=== PATIENT | male | born 1980 | race Caucasian/White ===

== ENCOUNTER 2019-12-23 | Emergency (ER) | payer SELFPAY ==
--- OUTSIDE RECORDS SUMMARY | 2019-12-23 00:04 | XMS REPORT | Continuity of Care Document ---
:1980 Author Organization [facility] t Address [address] [place] [address] Care Team Providers Name Role Phone UNKNOWN Primary Care Physician Unavailable Problems This patient has no known problems. Allergies, Adverse Reactions, Alerts This patient has no known allergies or adverse reactions. Medications This patient has no known medications. Procedures This patient has no known procedures. Encounters Start End Encounter Admission Attending Care Care Encounter Source Date/Time Date/Time Type Type Clinicians Facility Department ID 2017-04-12 2017-04-12 Emergency E [facility] [id number] Medical 08:44:00 08:44:00 [facility] Results Test Description Test Time Test Comments Results Result [facility] e Comments SPINE LUMBAR SACR 2017-05-08 [facility] OF 09:31:[address] [id number] IMAGING REPORTPatient Name: Zehra KELLEY of Service: [id number]: 36 Sex: M Order #: [id number] [facility] 1980 [facility] Number: [id number] Record Number: [id number] Hospital Number: [id number] Physician: SULMA GRACEOrdering Physician: GEORGI SOLORZANO SPINE FIVE VIEWS:CLINICAL HISTORY: Back pain after liftingTECHNIQUE: AP, lateral, bilateral oblique and cone down lateral.FINDINGS: The lumbar vertebrae are normal in alignment with no suggestionof bone injury or subluxation seen at any level. The facet joints arenormal.IMPRESSIONN ormal lumbar spine.Electronically Signed By: Pankaj Phelps M.D., 05/08/2017 9:28 AMLegally authenticated by KADEN Miller 2017-05-08 09:28:38
[2019-12-23] MEDS ORDERED: TETANUS & DIPHTHERIA TOX,ADULT 0.5 ML VIAL ONE (00:36)
[2019-12-23] MEDS ORDERED: HYDROCODONE/APAP 7.5/325 MG TAB ONE (00:36)
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
[2019-12-23 01:42] VITALS: TEMP 98
[2019-12-23 01:43] VITALS: BP 110/74; O2SAT 97
--- NOTE | 2019-12-23 08:31 | RAD REPORT ---
EXAM DESCRIPTION: RAD - Foot Right 3 View - 12/23/2019 1:11 am CLINICAL HISTORY: PAIN Pain and swelling. COMPARISON: No comparisons FINDINGS: No fracture, dislocation or radiopaque foreign body seen. Hardware plate is present distal fibula.
--- NOTE | 2019-12-23 08:32 | RAD REPORT ---
EXAM DESCRIPTION: RAD - Tib Fib Right - 12/23/2019 1:10 am CLINICAL HISTORY: PAIN Pain and swelling COMPARISON: No comparisons FINDINGS: No fracture, dislocation or radiopaque foreign body. Small hardware plate is present dista l fibula.
== END 2019-12-23 01:30 | disposition home or self-care (01) ==
LOC: ER
DX: M79.661 Pain in right lower leg (principal); M25.571 Pain in right ankle and joints of right foot; X95.8XXA Assault by other firearm discharge, initial encounter; Y93.89 Activity, other specified; Y92.9 Unspecified place or not applicable; Z88.1 Allergy status to other antibiotic agents; Z91.040 Latex allergy status; F17.210 Nicotine dependence, cigarettes, uncomplicated
CPT/HCPCS: 90714; 99284

== ENCOUNTER 2020-10-30 18:50 | Emergency (ER) | payer SELFPAY ==
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
[2020-10-30] MEDS ORDERED: KETOROLAC 30 MG/ML INJ ONE (19:53)
[2020-10-30] MEDS ORDERED: LIDOCAINE 1% MPF 5 ML VIAL ONE (19:53)
--- NOTE | 2020-10-30 20:16 | EDPHYS ---
Physician Documentation [facility] Name: Eliot Lara Age: 40 yrs Sex: Male : 1980 Arrival Date: 10/30/2020 Time: 18:55 Bed 6 Private MD: ED Physician Jaylan Foster HPI: 10/30 19:31 This 40 yrs old Male presents to ER via Unassigned with complaints of Neck mh7 pain, shoulder pain. 20:03 The patient presents with an abscess of the right posterior lateral neck at hair line, mh7 the patient presents with a swollen area of the right posterior lateral neck at hairline. Description: erythematous, swollen, tense. Onset: The symptoms/episode began/occurred yesterday. Possible cause(s): unknown. Associated signs and symptoms: Pertinent positives: erythema, swelling, Pertinent negatives: discharge, drainage, foreign body sensation, fever, headache, nausea, shortness of breath, vomiting. Modifying factors: the symptoms are alleviated by nothing, the symptoms are aggravated by pressure, touching. Severity of symptoms: At their worst the symptoms were moderate, last night, in the emergency department the symptoms are unchanged. States that he cut his hair about a week ago then noticed bump yesterday which he has been touching. has noticed redness ,swelling, and pain that radiates to shoulder from the area.. Historical: - Allergies: 19:33 adhesive tape; lp1 19:33 Augmentin; lp1 19:33 Latex, Natural Rubber; lp1 19:33 Demerol; lp1 - Home Meds: 19:33 None [Active]; lp1 - PMHx: 19:33 ADD/ADHD; Bipolar disorder; epilepsy; neuropathy; lp1 - PSHx: 19:33 Ankle sx; lp1 - Immunization history:: Adult Immunizations up to date. - Social history:: Smoking status: Patient reports the use of cigarette tobacco products, smokes one pack cigarettes per day. ROS: 20:08 Constitutional: Negative for fever, chills, and weight loss, Eyes: Negative for injury, mh7 pain, redness, and discharge, ENT: Negative for injury, pain, and discharge, Cardiovascular: Negative for chest pain, palpitations, and edema, Respiratory: Negative for shortness of breath, cough, wheezing, and pleuritic chest pain, Abdomen/GI: Negative for abdominal pain, nausea, vomiting, diarrhea, and constipation, Back: Negative for injury and pain, : Negative for injury, bleeding, discharge, and swelling, MS/Extremity: Negative for injury and deformity, Neuro: Negative for headache, weakness, numbness, tingling, and seizure, Psych: Negative for depression, anxiety, suicide ideation, homicidal ideation, and hallucinations, Allergy/Immunology: Negative for hives, rash, and allergies, Endocrine: Negative for neck swelling, polydipsia, polyuria, polyphagia, and marked weight changes, Hematologic/Lymphatic: Negative for swollen nodes, abnormal bleeding, and unusual bruising. Exam: 20:08 Constitutional: This is a well developed, well nourished patient who is awake, alert, mh7 and in no acute distress. Head/Face: Normocephalic, atraumatic. Eyes: Pupils equal round and reactive to light, extra-ocular motions intact. Lids and lashes normal. Conjunctiva and sclera are non-icteric and not injected. Cornea within normal limits. Periorbital areas with no swelling, redness, or edema. 20:08 Chest/axilla: Normal chest wall appearance and motion. Nontender with no deformity. No lesions are appreciated. Cardiovascular: Regular rate and rhythm with a normal S1 and S2. No gallops, murmurs, or rubs. Normal PMI, no JVD. No pulse deficits. Respiratory: Lungs have equal breath sounds bilaterally, clear to auscultation and percussion. No rales, rhonchi or wheezes noted. No increased work of breathing, no retractions or nasal flaring. Abdomen/GI: Soft, non-tender, with normal bowel sounds. No distension or tympany. No guarding or rebound. No evidence of tenderness throughout. Back: No spinal tenderness. No costovertebral tenderness. Full range of motion. 20:08 MS/ Extremity: Pulses equal, no cyanosis. Neurovascular intact. Full, normal range of motion. Neuro: Awake and alert, GCS 15, oriented to person, place, time, and situation. Cranial nerves II-XII grossly intact. Motor strength 5/5 in all extremities. Sensory grossly intact. Cerebellar exam normal. Normal gait. Psych: Awake, alert, with orientation to person, place and time. Behavior, mood, and affect are within normal limits. 20:08 Neck: External neck: abscess, that is small, of the right posterior lateral neck at hairline, with surrounding cellulitis, erythema, that is mild, of the right posterior lateral neck at hairline, tenderness, that is mild, C-spine: appears grossly normal, Thyroid: appears normal, Trachea: is midline with no obvious abnormalities, ROM/movement: is normal, Lymph nodes: no appreciated lymphadenopathy. 20:08 Skin: abscess, that is small, approximately 2.5 cm(s), of the right posterior lateral neck at hairline, with induration, with surrounding cellulitis, that is mild. Vital Signs: 19:31 BP 150 / 107; Pulse 99; Resp 18; Temp 98.5(O); Pulse Ox 98% on R/A; Weight 81.65 kg lp1 (R); Height 5 ft. 8 in. (172.72 cm); Pain 8/10; 20:19 BP 127 / 90; lp1 19:31 Body Mass Index 27.37 (81.65 kg, 172.72 cm) lp1 Procedures: 20:08 I \T\ D: Incision and drainage was performed for an abscess of the right Prepped with [facility] Betadine, Anesthetized with 3 ml's 1% Lidocaine. Incised with #11 blade. Drained small amount purulent fluid. serosanguinous fluid. Loculations removed. Abscess cavity explored. Packed with iodoform gauze, Dressing: non-Adherent dressing, the patient tolerated the procedure well. MDM: 20:08 Differential diagnosis: abscess, allergic reaction, cellulitis, insect bite. Data [facility] reviewed: vital signs, nurses notes. Data interpreted: Pulse oximetry: on room air is 98 %. Interpretation: normal. Counseling: I had a detailed discussion with the patient and/or guardian regarding: the historical points, exam findings, and any diagnostic results supporting the discharge/admit diagnosis, the presence of at least one elevated blood pressure reading (>120/80) during this emergency department visit, the need for outpatient follow up, to return to the emergency department if symptoms worsen or persist or if there are any questions or concerns that arise at home. Response to treatment: the patient's symptoms have markedly improved after treatment. 20:15 Patient medically screened. [facility] Administered Medications: 19:38 Drug: TORadol 60 mg Route: IM; Site: right gluteus; 20:28 Follow up: Response: No adverse reaction lp1 19:38 Drug: Lidocaine (1 %) 10 ml {Note: Administered by Provider.} Volume: 5 ml; Route: wh Infiltration; 20:15 Drug: Clindamycin 600 mg Route: IM; Site: left gluteus; lp1 20:28 Follow up: Response: No adverse reaction; Medication administered at discharge. lp1 Disposition: 10/30/20 20:15 Discharged to Home. Impression: Skin Abscess, Right Neck. - Condition is Stable. - Discharge Instructions: Skin Abscess, [id number]. - Prescriptions for Clindamycin HCl 300 mg Oral Capsule - take 1 capsule by ORAL route every 6 hours for 10 days; 40 capsule. Ibuprofen 800 mg Oral Tablet - take 1 tablet by ORAL route every 8 hours As needed take with food; 15 tablet. - Medication Reconciliation Form, Thank You Letter, Antibiotic Education, Prescription Opioid Use form. - Follow up: Emergency Department; When: 48 Hours; Reason: Wound Recheck, Worsening of condition, Recheck today's complaints, Continuance of care, Re-evaluation by your physician. Follow up: Private Physician; When: 48 Hours; Reason: Wound Recheck, Worsening of condition, Recheck today's complaints. - Problem is new. - Symptoms have improved. Signatures: Monica Gil RN RN [facility] Miah Belle RN RN Jaylan Foster MD MD mh7 Corrections: (The following items were deleted from the chart) 20:29 20:15 10/30/2020 20:15 Discharged to Home. Impression: Skin Abscess, Right Neck. lp1 Condition is Stable. Forms are Medication Reconciliation Form, Thank You Letter, Antibiotic Education, Prescription Opioid Use. Follow up: Emergency Department; When: 48 Hours; Reason: Wound Recheck, Worsening of condition, Recheck today's complaints, Continuance of care, Re-evaluation by your physician. Follow up: Private Physician; When: 48 Hours; Reason: Wound Recheck, Worsening of condition, Recheck today's complaints. Problem is new. Symptoms have improved. mh7
--- NOTE | 2020-10-30 20:16 | ER ---
Nurse's Notes [facility] Name: Eliot Lara Age: 40 yrs Sex: Male : 1980 Arrival Date: 10/30/2020 Time: 18:55 Bed 6 Private MD: Diagnosis: Skin Abscess, Right Neck Presentation: 10/30 19:31 Chief complaint: Patient states: Pain to right side of neck radiating down right lp1 shoulder, reports popping pimple in that area about 1 month ago; States area is swollen, red, tender; denies fever. Coronavirus screen: Client denies travel out of the [place] in the last 14 days. At this time, the client does not indicate any symptoms associated with coronavirus-19. Ebola Screen: No symptoms or risks identified at this time. Initial Sepsis Screen: Does the patient meet any 2 criteria? No. Patient's initial sepsis screen is negative. Does the patient have a suspected source of infection? No. Patient's initial sepsis screen is negative. Risk Assessment: Do you want to hurt yourself or someone else? Patient reports no desire to harm self or others. Onset of symptoms was October 30, 2020. 19:31 Method Of Arrival: Ambulatory lp1 19:31 Acuity: OSWALDO 4 lp1 Historical: - Allergies: 19:33 adhesive tape; lp1 19:33 Augmentin; lp1 19:33 Latex, Natural Rubber; lp1 19:33 Demerol; lp1 - Home Meds: 19:33 None [Active]; lp1 - PMHx: 19:33 ADD/ADHD; Bipolar disorder; epilepsy; neuropathy; lp1 - PSHx: 19:33 Ankle sx; lp1 - Immunization history:: Adult Immunizations up to date. - Social history:: Smoking status: Patient reports the use of cigarette tobacco products, smokes one pack cigarettes per day. Screenin:33 Abuse screen: Denies threats or abuse. Denies injuries from another. Nutritional lp1 screening: No deficits noted. Tuberculosis screening: No symptoms or risk factors identified. Fall Risk None identified. Assessment: 19:37 General: Appears in no apparent distress. Behavior is calm, appropriate for age. Pain: lp1 Complains of pain in right mid cervical area and right trapezius Pain radiates to right shoulder Pain currently is 8 out of 10 on a pain scale. Neuro: No deficits noted. Cardiovascular: No deficits noted. Respiratory: No deficits noted. GI: No signs and/or symptoms were reported involving the gastrointestinal system. : No signs and/or symptoms were reported regarding the genitourinary system. EENT: No signs and/or symptoms were reported regarding the EENT system. Derm: Abscess located on right mid cervical area is quarter sized, is hot to touch, is red, is raised. Musculoskeletal: No deficits noted. 20:27 Reassessment: Patient demonstrates understanding of follow up and wound care at home. lp1 Vital Signs: 19:31 BP 150 / 107; Pulse 99; Resp 18; Temp 98.5(O); Pulse Ox 98% on R/A; Weight 81.65 kg lp1 (R); Height 5 ft. 8 in. (172.72 cm); Pain 8/10; 20:19 BP 127 / 90; lp1 19:31 Body Mass Index 27.37 (81.65 kg, 172.72 cm) lp1 ED Course: 18:55 Patient arrived in ED. mr 19:10 Jaylan Foster MD is Attending Physician. [facility] 19:12 Monica Gil, RN is Primary Nurse. lp1 19:32 Triage completed. lp1 19:32 Arm band placed on. lp1 19:33 Patient has correct armband on for positive identification. lp1 19:59 Assist provider with I \T\ D: of an abscess on right posterior neck Set up I\T\D tray. lp 1 Performed by Jaylan Foster MD Wound packed. iodoform gauze, Dressing with 4X4s, 4x4 and tegaderm applied. 20:08 Patient did not have IV access during this emergency room visit. lp1 Administered Medications: 19:38 Drug: TORadol 60 mg Route: IM; Site: right gluteus; 20:28 Follow up: Response: No adverse reaction lp1 19:38 Drug: Lidocaine (1 %) 10 ml {Note: Administered by Provider.} Volume: 5 ml; Route: wh Infiltration; 20:15 Drug: Clindamycin 600 mg Route: IM; Site: left gluteus; lp1 20:28 Follow up: Response: No adverse reaction; Medication administered at discharge. lp1 Outcome: 20:15 Discharge ordered by . [facility] 20:28 Discharged to home ambulatory. lp1 20:28 Condition: good 20:28 Discharge instructions given to patient, Instructed on discharge instructions, follow up and referral plans. medication usage, Demonstrated understanding of instructions, follow-up care, medications, wound care, Prescriptions given X 2. 20:29 Patient left the ED. lp1 Signatures: Pankaj Divina GilMonica RN RN 1 Miah Belle RN RN wh Holmes, Maurice, MD MD [facility] Corrections: (The following items were deleted from the chart) 20:08 19:59 Assist provider with I \T\ D: of an abscess on right posterior neck Set up I\T\D lp 1 tray. Performed by Jaylan Foster MD 1 20:27 19:59 Assist provider with I \T\ D: of an abscess on right posterior neck Set up I\T\D lp 1 tray. Performed by Jaylan Foster MD Dressing with 4X4s, 4x4 and tegaderm applied lp1
[2020-10-30] MEDS ORDERED: CLINDAMYCIN IV 150 MG/ML (4 mL) VIAL ONE (20:28)
== END 2020-10-30 20:29 | disposition home or self-care (01) ==
LOC: ER 18:50
PROC: 0H94XZZ Drainage of Neck Skin, External Approach (ICD-10-PCS; principal; 2020-10-30)
DX: L02.11 Cutaneous abscess of neck (principal); F17.210 Nicotine dependence, cigarettes, uncomplicated; F31.9 Bipolar disorder, unspecified; F90.9 Attention-deficit hyperactivity disorder, unspecified type; G40.909 Epilepsy, unspecified, not intractable, without status epilepticus; G62.9 Polyneuropathy, unspecified
CPT/HCPCS: 96372; 99283; S0077

== ENCOUNTER 2020-11-23 20:39 | Emergency (ER) | payer SELFPAY ==
--- OUTSIDE RECORDS SUMMARY | 2020-11-23 20:41 | XMS REPORT | Continuity of Care Document ---
:1980 Author Organization [facility] t Address [address] Bruce [address] [place] [id number] Care Team Providers Name Role Phone UNKNOWN [...] ID 2017-04-12 2017-04-12 Emergency E [facility] MED [id number] Medical 08:44:00 08:44:00 [facility] Results Test Description Test Time Test Comments Results Result Sour e Comments SPINE LUMBAR SACR 2017-05-08 [facility] OF 09:31:[address] [id number] IMAGING REPORTPatient Name: Zehra KELLEY of Service: [id number]: 36 Sex: M Order #: [id number] Room: ERSDOB: 1980 X-Ray Number: [id number] Record Number: [id number] Hospital Number: [id number] Physician: SULMA GRACEOrdering Physician: GEORGI SOLORZANO SPINE [...]
[2020-11-23] MEDS ORDERED: MIDAZOLAM HCL 2 MG/2 ML INJ ONE (21:14)
[2020-11-23 21:23] LABS: Absolute Lymphocytes (CBC) 4.2 K/uL (0.7-4.9); Basophils % 0.3 % (0-1.3); Hematocrit 43.9 % (39.6-49.0); Lymphocytes % 39.3 % (15.3-44.8); MPV 10.4 fL (7.6-11.3)
[2020-11-23 21:30] LABS: Protime INR 0.89
[2020-11-23] MEDS ORDERED: ONDANSETRON 4 MG/2 ML VIAL ONE (21:37)
[2020-11-23 21:43] LABS: BUN Blood Urea Nitrogen 11 mg/dL (7-18); Bicarbonate 23 mmol/L (21-32); Glucose Level 88 mg/dL (74-106); Potassium 3.6 mmol/L (3.5-5.1); Sodium Level 141 mmol/L (136-145)
[2020-11-23 22:00] LABS: Barbiturates NEGATIVE (NEGATIVE); Benzodiazepines NEGATIVE (NEGATIVE); Cocaine NEGATIVE (NEGATIVE); METHAMPHETAM NEGATIVE (NEGATIVE); Methadone NEGATIVE (NEGATIVE); Opiates NEGATIVE (NEGATIVE); Phencyclidine NEGATIVE (NEGATIVE); THC Cannibis NEGATIVE (NEGATIVE)
[2020-11-23] MEDS ORDERED: NA CHLORIDE 0.9% 1,000 ML ONE (22:08)
[2020-11-24] MEDS ORDERED: NA CHLORIDE 0.9% 1,000 ML ONE (04:48)
--- NOTE | 2020-11-24 06:07 | ER ---
Nurse's Notes [facility] Name: Eliot Lara Age: 40 yrs Sex: Male : 1980 Arrival Date: 11/23/2020 Time: 20:40 Bed 14 Private MD: Diagnosis: Alcohol abuse with intoxication;Pain in left lower leg Presentation: 11/23 20:47 Chief complaint: Patient states: pt assisted from vehicle by Nav GRIER who was told pt bb was [place] the beach drinking then started wrestling when they heard a snap and the pt passed out. The pt is c/o left hip pain 05/01. Coronavirus screen: At this time, the client does not indicate any symptoms associated with coronavirus-19. Ebola Screen: No symptoms or risks identified at this time. Initial Sepsis Screen: Does the patient meet any 2 criteria? No. Patient's initial sepsis screen is negative. Does the patient have a suspected source of infection? No. Patient's initial sepsis screen is negative. Risk Assessment: Do you want to hurt yourself or someone else? Patient reports no desire to harm self or others. Onset of symptoms was November 23, 2020. 20:47 Method Of Arrival: Wheelchair bb 20:47 Acuity: OSWALDO 3 bb 20:52 Care prior to arrival: None. Mechanism of Injury: "wrestling". Trauma event details: bb Injury occurred in the [facility], Injury occurred: in a recreational area. Triage Assessment: 22:04 General: Appears distressed, uncomfortable, Behavior is agitated, crying, restless. jm8 Pain: Complains of pain in left knee and left hip. EENT: No deficits noted. Neuro: Level of Consciousness is awake, confused, Oriented to person, place, Reaction to noxious stimuli is. Cardiovascular: No deficits noted. Respiratory: No deficits noted. GI: No deficits noted. : No deficits noted. Derm: No deficits noted. Musculoskeletal: Reports pain in left knee and left hip. Injury Description: Abrasion sustained to left knee. Trauma Activation: Alert Physician: ED Physician; Name: Dr Null; Notified At: 20:35; Arrived At: 20:35 Physician: General Surgeon; Name: ; Notified At: 20:35; Arrived At: Physician: Radiology; Name: ; Notified At: 20:35; Arrived At: Physician: Respiratory; Name: Fawad Jim; Notified At: 20:35; Arrived At: 20:37 Physician: Lab; Name: ; Notified At: 20:35; Arrived At: Historical: - Allergies: 20:51 adhesive tape; bb 20:51 Augmentin; bb 20:51 Demerol; bb 20:51 Latex, Natural Rubber; bb - Home Meds: 20:51 Zoloft Oral [Active]; bb - PMHx: 20:51 ADD/ADHD; Bipolar disorder; epilepsy; neuropathy; bb - PSHx: 20:51 Ankle sx; bb - Immunization history:: Adult Immunizations up to date. - Social history:: Smoking status: Patient reports the use of cigarette tobacco products, smokes two packs cigarettes per day. Patient uses alcohol, patient/guardian reports recent binge of alcohol consumption. street drugs, marijuana. - Immunization history: Last tetanus immunization: unknown. - Family history:: not pertinent. - Hospitalizations: : No recent hospitalization is reported. Screenin:00 Abuse screen: Denies threats or abuse. Denies injuries from another. Nutritional jm8 screening: No deficits noted. Tuberculosis screening: No symptoms or risk factors identified. Fall Risk Gait- Impaired (20 pts.). Mental Status-. Fall Risk. Primary Survey: 22:01 NO uncontrolled hemorrhage observed. A: The patient is alert. Airway: patent, No jm8 supplemental oxygen in use on arrival. Oral cavity: clear, Trachea midline. Breathing/Chest: Respiratory pattern: regular, Respiratory effort: spontaneous. Circulation: Skin color: pink, Skin temperature: warm. Disability Alert. Exposure/Environment: All clothing and personal items were removed. Forensic evidence collection is not deemed to be indicated at this time. Items placed in patient belonging bag. There is no evidence of uncontrolled external bleeding. No obvious injuries are noted at this time. A warming method has been applied: A warm blanket has been provided to the patient. Reassessment Airway Airway Patent Oxygen No O2 Breathing/Chest Circulation Color [place] Temperature Warm Disability Alert. Assessment: 20:56 Reassessment: Patient becomes physically aggressive with staff at this time. made tracey aware orders sedation for patient at this time. 21:41 Reassessment: Shellie- [phone]. [facility] 21:42 Reassessment: Patient family member Shellie states that patient drank a whole liter of jm8 vodka by himself. Family member states that patient did not do any other substances this evening. 23:56 Reassessment: Patient appears in no apparent distress at this time. Patient and/or 8 family updated on plan of care and expected duration. Pain level reassessed. 11/24 02:23 Reassessment: Patient appears in no apparent distress at this time. No changes from 8 previously documented assessment. Patient and/or family updated on plan of care and expected duration. Pain level reassessed. 04:37 Reassessment: Patient appears in no apparent distress at this time. No changes from 8 previously documented assessment. Patient and/or family updated on plan of care and expected duration. Pain level reassessed. Patient is alert, oriented x 3, equal unlabored respirations, skin warm/dry/pink. 04:37 Reassessment: Patient awake and talking at this time. [facility] Vital Signs: 11/23 20:47 BP 122 / 83; Pulse 93; Resp 20 S; Temp 97.8(O); Pulse Ox 99% on R/A; Weight 81.19 kg bb (R); Height 5 ft. 10 in. (177.80 cm) (R); Pain 10/10; 23:56 BP 116 / 92; Pulse 75; Resp 16; Pulse Ox 97% on R/A; jm8 11/24 02:25 BP 106 / 78; Pulse 65; Resp 16; Pulse Ox 97% on R/A; jm8 11/23 20:47 Body Mass Index 25.68 (81.19 kg, 177.80 cm) bb Frankie Coma Score: 11/23 22:03 Eye Response: spontaneous(4). Verbal Response: oriented(5). Motor Response: obeys jm8 commands(6). Total: 15. Trauma Score (Adult): 22:03 Eye Response: spontaneous(1); Verbal Response: oriented(1); Motor Response: obeys jm8 commands(2); Systolic BP: > 89 mm Hg(4); Respiratory Rate: 10 to 29 per min(4); Frankie Score: 15; Trauma Score: 12 ED Course: 20:40 Patient arrived in ED. es 20:44 Kade Null MD is Attending Physician. rn 20:50 Triage completed. bb 20:51 Arm band placed on Patient placed in an exam room, on a stretcher, on pulse oximetry. bb 20:52 Patient has correct armband on for positive identification. bb 20:52 Patient maintains SpO2 saturation greater than 95% on room air. bb 20:52 Inserted saline lock: 20 gauge in right forearm, using aseptic technique. jm8 21:01 Thermoregulation: warm blanket given to patient. bb 21:35 CT Traumagram (Head C Spine CAP W Con) In Process Unspecified. EDMS 21:41 XRAY Femur LEFT In Process Unspecified. EDMS 22:06 No provider procedures requiring assistance completed. tracey 11/24 05:13 ETOH Level: repeat at 0500 Sent. mary8 06:09 XRAY Tib Fib LEFT In Process Unspecified. EDMS 07:07 IV discontinued, intact, bleeding controlled, No redness/swelling at site. tracey Administered Medications: 11/23 20:54 CANCELLED (Duplicate Order): Dilaudid (HYDROmorphone) 1 mg IVP once; RASS on ADMIN: rn Combtv4, Very Agttd3, Agttd2, Rstlss1, AlertClm0, Drwsy-1, Lt Sdtn-2, Mod Sdtn-3, Dp Sdtn-4, UnArsble-5 21:00 Drug: Versed (midazolam) 3 mg Route: IVP; Site: right forearm; tracey 23:00 Follow up: Response: No adverse reaction; Patient is sedated jm8 21:52 Drug: NS 0.9% 1000 ml Route: IV; Rate: 1000 ml; Site: right forearm; tracey 21:53 Drug: Zofran (Ondansetron) 4 mg Route: IVP; Site: right forearm; tracey 23:00 Follow up: Response: No adverse reaction mary8 11/24 04:30 Drug: NS 0.9% 1000 ml Route: IV; Rate: 1 bolus; Site: right forearm; tracey Intake: 11/23 22:03 PO: 0ml; Total: 0ml. tracey Outcome: 11/24 06:06 Discharge ordered by . rn 07:01 Patient left the ED. jm8 07:[address] [facility] 07:07 Condition: good 07:07 Discharge instructions given to patient, Instructed on discharge instructions, follow up and referral plans. Demonstrated understanding of instructions, follow-up care, medications. 07:07 Patient's length of stay was not longer than 2 hours. Patient's length of stay in the [facility] Emergency Department was greater than 2 hours. intoxicatedPatient's length of stay extended due to Signatures: Dispatcher [employer] EDStephanie Carpenter Brenda, RN RN Kade Dean MD MD rn Malcaba, Joseph, RN RN [facility] Corrections: (The following items were deleted from the chart) 02:24 05/04 23:56 Reassessment: Patient appears in no apparent distress at this time. Patient jm8 and/or family updated on plan of care and expected duration. Pain level reassessed. Patient is alert, oriented x 3, equal unlabored respirations, skin warm/dry/pink. [facility]
--- NOTE | 2020-11-24 06:07 | EDPHYS ---
Physician Documentation [facility] Name: Eliot Lara Age: 40 yrs Sex: Male : 1980 Arrival Date: 11/23/2020 Time: 20:40 Bed 14 Private MD: ED Physician Kade Null HPI: 11/23 20:46 This 40 yrs old Male presents to ER via Unassigned with complaints of Leg rn Injury. 20:46 The patient presents with decreased range of motion, an injury, pain. The complaints rn affect the left quadriceps. Onset: The symptoms/episode began/occurred just prior to arrival. Modifying factors: The symptoms are alleviated by nothing. the symptoms are aggravated by movement. Associated signs and symptoms: Pertinent negatives fever, weakness. Severity of symptoms: At their worst the symptoms were severe, in the emergency department the symptoms are unchanged. The patient has not experienced similar symptoms in the past. Reports at beach, drinking, wrestling, heard a pop, + severe left upper leg pain, unable to ambulate, denies other injury.. Historical: - Allergies: 20:51 adhesive tape; bb 20:51 Augmentin; bb 20:51 Demerol; bb 20:51 Latex, Natural Rubber; bb - Home Meds: 20:51 Zoloft Oral [Active]; bb - PMHx: 20:51 ADD/ADHD; Bipolar disorder; epilepsy; neuropathy; bb - PSHx: 20:51 Ankle sx; bb - Immunization history:: Adult Immunizations up to date. - Social history:: Smoking status: Patient reports the use of cigarette tobacco products, smokes two packs cigarettes per day. Patient uses alcohol, patient/guardian reports recent binge of alcohol consumption. street drugs, marijuana. - Immunization history: Last tetanus immunization: unknown. - Family history:: not pertinent. - Hospitalizations: : No recent hospitalization is reported. ROS: 20:46 Constitutional: Negative for fever, chills, and weight loss, Neck: Negative for injury, rn pain, and swelling, Cardiovascular: Negative for chest pain, palpitations, and edema, Respiratory: Negative for shortness of breath, cough, wheezing, and pleuritic chest pain, Abdomen/GI: Negative for abdominal pain, nausea, vomiting, diarrhea, and constipation, Back: Negative for injury and pain, MS/Extremity: + left leg pain Skin: Negative for injury, rash, and discoloration, Neuro: Negative for headache, weakness, numbness, tingling, and seizure. Exam: 20:46 Constitutional: This is a well developed, well nourished patient who is awake, alert, rn crying, in pain Head/Face: Normocephalic, atraumatic. Eyes: Pupils equal round and reactive to light, extra-ocular motions intact. Lids and lashes normal. Conjunctiva and sclera are non-icteric and not injected. Cornea within normal limits. Periorbital areas with no swelling, redness, or edema. Neck: no midline tenderness Chest/axilla: Normal chest wall appearance and motion. Nontender with no deformity. No lesions are appreciated. Cardiovascular: Tachycardic, regular Respiratory: Hyperventilating, equal breath sounds bilaterally Abdomen/GI: soft, non-tender Skin: Warm, dry, no cyanosis MS/ Extremity: Pulses equal, no cyanosis. + tenderness mid-proximal left thigh, + refuses to move left upper leg, no focal tenderness at knee/tib/fib/ankle/foot. No open wounds. Neuro: Awake and alert, GCS 15, oriented to person, place, time, and situation. Vital Signs: 20:47 BP 122 / 83; Pulse 93; Resp 20 S; Temp 97.8(O); Pulse Ox 99% on R/A; Weight 81.19 kg bb (R); Height 5 ft. 10 in. (177.80 cm) (R); Pain 10/10; 23:56 BP 116 / 92; Pulse 75; Resp 16; Pulse Ox 97% on R/A; jm8 11/24 02:25 BP 106 / 78; Pulse 65; Resp 16; Pulse Ox 97% on R/A; jm8 11/23 20:47 Body Mass Index 25.68 (81.19 kg, 177.80 cm) bb Frankie Coma Score: 11/23 22:03 Eye Response: spontaneous(4). Verbal Response: oriented(5). Motor Response: obeys jm8 commands(6). Total: 15. Trauma Score (Adult): 22:03 Eye Response: spontaneous(1); Verbal Response: oriented(1); Motor Response: obeys jm8 commands(2); Systolic BP: > 89 mm Hg(4); Respiratory Rate: 10 to 29 per min(4); [place] Score: 15; Trauma Score: 12 MDM: 20:44 Patient medically screened. rn 20:58 ED course: Pt became acutely agitated, confused, no longer tender with ROM left leg, rn possibly either head injury vs intoxication with other substance, whoever dropped him off are no longer here for further information, patient began fighting 3 nurses, versed 3 mg IV ordered for sedation for safety of staff and to obtain stat head ct. . 22:16 ED course: Family called, state that he had a lot to drink today, said he was rn wrestling, but did not witness any obvious injury.. 11/24 05:48 ED course: Pt more sober now, states now that left lower leg hurts between knee and rn ankle. Xrays ordered given new finding on tertiary survey.. 06:05 Differential diagnosis: contusion. Data reviewed: vital signs, nurses notes, lab test rn result(s), radiologic studies, CT scan, plain films, and as a result, I will discharge patient. Counseling: I had a detailed discussion with the patient and/or guardian regarding: the historical points, exam findings, and any diagnostic results supporting the discharge/admit diagnosis, lab results, radiology results, the need for outpatient follow up, to return to the emergency department if symptoms worsen or persist or if there are any questions or concerns that arise at home. Response to treatment: the patient's symptoms have markedly improved after treatment, and as a result, I will discharge patient. ED course: No fracture/dislocation left femur/tibfib. More sober, Alcohol level 120s, will dc home in care of family. . 11/23 20:45 Order name: CBC with Diff rn 11/23 20:45 Order name: Basic Metabolic Panel rn 11/23 20:45 Order name: Protime (+inr) rn 11/23 20:45 Order name: Ptt, Activated; Complete Time: 21:36 rn 11/23 20:46 Order name: CBC with Automated Diff; Complete Time: 21:36 EDAK 11/23 20:46 Order name: Basic Metabolic Panel; Complete Time: 21:49 EDMS 11/23 20:45 Order name: XRAY Femur LEFT rn 11/23 20:46 Order name: Protime (+INR); Complete Time: 21:36 EDMS 11/23 20:55 Order name: Urine Drug Screen rn 11/23 20:55 Order name: ETOH Level; Complete Time: 22:16 rn 11/23 20:56 Order name: Urine Drug Screen; Complete Time: 22:16 EDAK 11/23 21:35 Order name: CREATININE WHOLE BLOOD; Complete Time: 21:36 EDAK 11/24 04:24 Order name: ETOH Level: repeat at 0500 bb 11/24 04:24 Order name: Alcohol Serum/Plasma; Complete Time: 05:44 EDAK 11/23 20:45 Order name: IV Start; Complete Time: 21:40 rn 11/23 20:55 Order name: CT Traumagram (Head C Spine CAP W Con) rn 11/24 05:47 Order name: XRAY Tib Fib LEFT rn Administered Medications: 11/23 20:54 CANCELLED (Duplicate Order): Dilaudid (HYDROmorphone) 1 mg IVP once; RASS on ADMIN: rn Combtv4, Very Agttd3, Agttd2, Rstlss1, AlertClm0, Drwsy-1, Lt Sdtn-2, Mod Sdtn-3, Dp Sdtn-4, UnArsble-5 21:00 Drug: Versed (midazolam) 3 mg Route: IVP; Site: right forearm; [facility] 23:00 Follow up: Response: No adverse reaction; Patient is sedated [facility] 21:52 Drug: NS 0.9% 1000 ml Route: IV; Rate: 1000 ml; Site: right forearm; [facility] 21:53 Drug: Zofran (Ondansetron) 4 mg Route: IVP; Site: right forearm; [facility] 23:00 Follow up: Response: No adverse reaction [facility] 11/24 04:30 Drug: NS 0.9% 1000 ml Route: IV; Rate: 1 bolus; Site: right forearm; [facility] Disposition: 11/24/20 06:06 Discharged to Home. Impression: Alcohol abuse with intoxication, Pain in left lower leg. - Condition is Stable. - Discharge Instructions: Alcohol Intoxication, Musculoskeletal Pain. - Medication Reconciliation Form, Thank You Letter, Antibiotic Education, Prescription Opioid Use form. - Follow up: Private Physician; When: As needed; Reason: Recheck today's complaints, Re-evaluation by your physician. - Problem is new. - Symptoms have improved. Signatures: Dispatcher [employer] Nazanin Benton RN RN Kade Dean MD MD rn Malcaba, Joseph, CHERRIE RN jm8 Corrections: (The following items were deleted from the chart) 11/23 20:54 20:45 Dilaudid (HYDROmorphone) 1 mg IVP once; RASS on ADMIN: Combtv4, Very Agttd3, rn Agttd2, Rstlss1, AlertClm0, Drwsy-1, Lt Sdtn-2, Mod Sdtn-3, Dp Sdtn-4, UnArsble-5 ordered. rn 11/24 07:01 06:06 11/24/2020 06:06 Discharged to Home. Impression: Alcohol abuse with intoxication; jm8 Pain in left lower leg. Condition is Stable. Discharge Instructions: Alcohol Intoxication, Musculoskeletal Pain. Forms are Medication Reconciliation Form, Thank You Letter, Antibiotic Education, Prescription Opioid Use. Follow up: Private Physician; When: As needed; Reason: Recheck today's complaints, Re-evaluation by your physician. Problem is new. Symptoms have improved. rn
[2020-11-24 07:07] VITALS: TEMP 97.8
[2020-11-24 07:08] VITALS: O2SAT 97
[2020-11-24 07:09] VITALS: BP 106/78
--- NOTE | 2020-11-24 07:30 | RAD REPORT ---
EXAM DESCRIPTION: RAD - Femur Left - 11/23/2020 9:41 pm CLINICAL HISTORY: Left leg pain. FINDINGS: No fracture is seen. Bony density adjacent to the lateral aspect of the acetabulum is air crew officer lisa.
--- NOTE | 2020-11-24 07:32 | RAD REPORT ---
EXAM DESCRIPTION: Tessa Reddy Left11/24/2020 6:10 am CLINICAL HISTORY: Left leg pain status post injury FINDINGS: No fracture is seen
--- NOTE | 2020-11-24 11:30 | RAD REPORT ---
EXAM DESCRIPTION: CT - Head C Spine Jorge Gaston - 11/24/2020 6:57 am CLINICAL HISTORY: AMS, alleged trauma. TECHNIQUE: Axial, coronal, and sagittal images through the brain were performed in the absence of in travenous contrast. CT of the cervical spine was performed without contrast. Axial, coronal, and sagittal reconstructions were created and sent to PACS. CT of the chest, abdomen, and pelvis was performed following intravenous administration of iodinated contrast. Oral contrast was not administered. Axial, coronal, and sagittal reconstructions were creat ed and sent to PACS. These exams were performed according to our departmental dose-optimization program which includes use of Automated Exposure Control, adjustment of the mA and/or kV according to patient size and/or use o f iterative reconstruction technique. COMPARISON: None. FINDINGS: CT Head: The brain parenchyma appears unremarkable. There is no intra-axial or extra-axial bleed seen. There i s no mass or mass effect. The ventricles are normal in size shape and configuration. The orbital cont ents appear unremarkable. The visualized paranasal sinuses and mastoid air cells are patent. No fracture is identified. 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 No acute osseous abnormality identified. Vertebral bod y height and alignment are maintained. No atlantodental interval widening. Atlantoaxial alignment is maintained. C2-C3: Small posterior disc osteophyte complex. No significant central canal or neuroforaminal narrow ing. C3-C4: Posterior disc osteophyte complex. Mild left-sided neuroforaminal narrowing due to uncinate an d facet hypertrophy. No significant central canal or right-sided neuroforaminal narrowing. C4-C5: Posterior disc osteophyte complex results in borderline narrowing of the central canal to 0.8 cm AP. No significant neuroforaminal narrowing. C5-C6: Posterior disc osteophyte complex results in mild narrowing of the central canal to 0.7 cm AP. Mild left-sided neuroforaminal stenosis due to uncinate hypertrophy. No significant right-sided neur oforaminal narrowing. C6-C7: Posterior disc osteophyte complex results in borderline central canal narrowing to 0.8 to 0.9 cm AP. Mild left-sided neuroforaminal stenosis due to uncinate hypertrophy. No significant right-side d neuroforaminal narrowing. Paraspinal soft tissues: Unremarkable. CT chest: Lungs and pleura: No pulmonary consolidation. No pleural effusion. No pneumothorax. Mediastinum and neck: No mediastinal lymphadenopathy identified by CT size criteria. Unremarkable adal earance of the thyroid gland. Cardiac: No cardiomegaly or pericardial effusion. No thoracic aortic aneurysm or dissection. CT abdomen/pelvis: Hepatobiliary: No concerning hepatic lesion identified. The hepatic and portal veins are patent. The gallbladder is unremarkable. No biliary ductal dilatation. Pancreas: Unremarkable. Spleen: Unremarkable. Gastrointestinal: Fluid in the proximal esophagus, suggestive of reflux. No evidence of bowel obstruc tion or perienteric inflammation. The appendix is normal. Moderate amount of fecal material in the si gmoid colon and rectum. Mild left colonic diverticulosis. No obvious bowel wall thickening or hematom a formation. Adrenals: No abnormality identified in either adrenal gland. Renal: No concerning parenchymal abnormality in either kidney. No hydronephrosis or urolithiasis. Bladder/Reproductive: Unremarkable appearance of the urinary bladder by CT technique. Mild prostatome andrew. Vascular/Lymphatics: No lymphadenopathy identified by CT size criteria. Abdominal aorta is normal in caliber. Mild calcific atherosclerosis. The major visceral vessels are patent. Musculoskeletal: No concerning osseous lesion identified. L5-S1 disc and endplate degenerative change s. No acute osseous abnormality identified. Fluid / peritoneum: No significant free fluid. No free intraperitoneal air identified. IMPRESSION 1. No acute intracranial abnormality identified. 2. No acute osseous abnormality identified in the cervical spine. 3. No acute traumatic abnormality identified in the chest, abdomen, or pelvis. Electronically signed by: Rose Mary Grubbs MD 11/23/2020 9:59 PM CDT Due to temporary technical issues with the PACS/Fluency reporting system, reports are being signed by the in house radiologist without review as a courtesy to ensure prompt reporting. The interpreting r adiologist is fully responsible for the content of the report.
== END 2020-11-24 07:01 | disposition home or self-care (01) ==
LOC: ER 20:39
DX: F10.129 Alcohol abuse with intoxication, unspecified (principal); F17.210 Nicotine dependence, cigarettes, uncomplicated; F31.9 Bipolar disorder, unspecified; Z88.1 Allergy status to other antibiotic agents; Z88.5 Allergy status to narcotic agent; Z91.040 Latex allergy status; Z91.048 Other nonmedicinal substance allergy status
CPT/HCPCS: 36415; 70450; 71260; 72125; 74177; 80048; 80307; 80320; 82565; 85025; 85610; 85730; 96374; 96375; 99284; G0390; J2250; J2405; J7030; Q9967

== ENCOUNTER 2020-11-27 16:28 | Emergency (ER) | payer SELFPAY ==
--- OUTSIDE RECORDS SUMMARY | 2020-11-27 16:31 | XMS REPORT | Continuity of Care Document ---
:1980 Author Organization [facility] t Address [address] Bruce [address] [place] [id number] Care Team Providers Name Role Phone UNKNOWN [...] ID 2017-04-12 2017-04-12 Emergency E [facility]CS[facility]X MED [id number] Medical 08:44:00 08:44:00 [facility] Results Test Description Test Time Test Comments Results Result Sour e Comments SPINE LUMBAR SACR 2017-05-08 [facility] OF 09:31:[address] [id number] IMAGING REPORTPatient Name: Zehra KELLEY of Service: [id number]: 37 Sex: M Order #: [id number] Room: ERSDOB: 1980 X-Ray Number: [id number] Record Number: [id number] Hospital Number: [id number] Physician: SULMA GRACEOrdering Physician: GEORGI SOLORZANO SPINE [...]
[2020-11-27] MEDS ORDERED: NA CHLORIDE 0.9% 1,000 ML ONE (17:07)
[2020-11-27 17:25] LABS: Absolute Lymphocytes (CBC) 1.6 K/uL (0.7-4.9); Basophils % 0.3 % (0-1.3); Hematocrit 42.5 % (39.6-49.0); Lymphocytes % 25.2 % (15.3-44.8); MPV 10.6 fL (7.6-11.3); RBC Red Blood Cell Count 4.66 M/uL (4.33-5.43)
[2020-11-27 17:33] LABS: Protime INR 0.96
[2020-11-27 17:47] LABS: ALT/SGPT 19 U/L (12-78); AST/SGOT 14 U/L (15-37); Albumin 4.1 g/dL (3.4-5.0); Alkaline Phosphatase 74 U/L (45-117); BUN Blood Urea Nitrogen 8 mg/dL (7-18); Bicarbonate 27 mmol/L (21-32); Bilirubin Direct 0.2 mg/dL (0-0.2); Bilirubin Total 1.1 mg/dL (0.2-1.0); Glucose Level 91 mg/dL (74-106); Potassium 3.8 mmol/L (3.5-5.1); Protein, Total 7.7 g/dL (6.4-8.2); Sodium Level 140 mmol/L (136-145)
--- NOTE | 2020-11-27 18:23 | EDPHYS ---
Physician Documentation [facility] Name: Eliot Lara Age: 40 yrs Sex: Male : 1980 Arrival Date: 11/27/2020 Time: 16:29 Bed 5 Private MD: ED Physician Lg Bishop HPI: 11/27 16:46 This 40 yrs old Male presents to ER via EMS with complaints of meth use. lawrence 16:46 used meth , hallucinations. Onset: The symptoms/episode began/occurred this morning. lawrence Severity of symptoms: At their worst the symptoms were mild in the emergency department the symptoms are unchanged. The patient has not experienced similar symptoms in the past. Historical: - Allergies: 16:33 adhesive tape; em 16:33 Augmentin; em 16:33 Demerol; em 16:33 Latex, Natural Rubber; em - PMHx: 16:33 ADD/ADHD; Bipolar disorder; epilepsy; neuropathy; em - PSHx: 16:33 Ankle sx; Hernia repair; em - Immunization history:: Adult Immunizations up to date. - Social history:: Smoking status: Patient reports the use of cigarette tobacco products, smokes one pack cigarettes per day. ROS: 16:47 Constitutional: Negative for fever, chills, and weight loss, Eyes: Negative for injury, lawrence pain, redness, and discharge, ENT: Negative for injury, pain, and discharge, Neck: Negative for injury, pain, and swelling, Respiratory: Negative for shortness of breath, cough, wheezing, and pleuritic chest pain, Abdomen/GI: Negative for abdominal pain, nausea, vomiting, diarrhea, and constipation, Back: Negative for injury and pain, : Negative for injury, bleeding, discharge, and swelling, MS/Extremity: Negative for injury and deformity, Skin: Negative for injury, rash, and discoloration, Psych: Negative for depression, anxiety, suicide ideation, homicidal ideation, and hallucinations, Allergy/Immunology: Negative for hives, rash, and allergies, Endocrine: Negative for neck swelling, polydipsia, polyuria, polyphagia, and marked weight changes, Hematologic/Lymphatic: Negative for swollen nodes, abnormal bleeding, and unusual bruising. 16:47 Cardiovascular: Positive for palpitations. 16:47 Neuro: Positive for altered mental status. Exam: 16:47 Constitutional: This is a well developed, well nourished patient who is awake, alert, lawrence and in no acute distress. Head/Face: Normocephalic, atraumatic. Eyes: Pupils equal round and reactive to light, extra-ocular motions intact. Lids and lashes normal. Conjunctiva and sclera are non-icteric and not injected. Cornea within normal limits. Periorbital areas with no swelling, redness, or edema. ENT: Nares patent. No nasal discharge, no septal abnormalities noted. Tympanic membranes are normal and external auditory canals are clear. Oropharynx with no redness, swelling, or masses, exudates, or evidence of obstruction, uvula midline. Mucous membranes moist. Neck: Trachea midline, no thyromegaly or masses palpated, and no cervical lymphadenopathy. Supple, full range of motion without nuchal rigidity, or vertebral point tenderness. No Meningismus. Chest/axilla: Normal chest wall appearance and motion. Nontender with no deformity. No lesions are appreciated. Respiratory: Lungs have equal breath sounds bilaterally, clear to auscultation and percussion. No rales, rhonchi or wheezes noted. No increased work of breathing, no retractions or nasal flaring. Abdomen/GI: Soft, non-tender, with normal bowel sounds. No distension or tympany. No guarding or rebound. No evidence of tenderness throughout. Back: No spinal tenderness. No costovertebral tenderness. Full range of motion. Male : Normal genitalia with no discharge or lesions. Skin: Warm, dry with normal turgor. Normal color with no rashes, no lesions, and no evidence of cellulitis. MS/ Extremity: Pulses equal, no cyanosis. Neurovascular intact. Full, normal range of motion. Neuro: Awake and alert, GCS 15, oriented to person, place, time, and situation. Cranial nerves II-XII grossly intact. Motor strength 5/5 in all extremities. Sensory grossly intact. Cerebellar exam normal. Normal gait. Psych: Awake, alert, with orientation to person, place and time. Behavior, mood, and affect are within normal limits. 16:47 Cardiovascular: Rate: tachycardic, Rhythm: regular, Pulses: Pulses are 4+ in bilateral radial, brachial, femoral, popliteal, posterior tibial and and dorsalis pedis arteries.. Heart sounds: normal, Edema: is not appreciated, JVD: is not appreciated. 16:47 Musculoskeletal/extremity: DVT Exam: No signs of deep vein thrombosis. no pain, no swelling, no tenderness, negative Homans' sign noted on exam, no appreciated bluish discoloration, no erythema, no increased warmth. 16:49 ECG was reviewed by the Attending Physician. lawrence 18:22 Respiratory: the patient does not display signs of respiratory distress, Respirations: lawrence normal, Breath sounds: are clear throughout, no bronchial sounds, no decreased breath sounds, no rales, rhonchi, no stridor, no wheezing, Respiratory rate: 16 Vital Signs: 16:30 BP 144 / 94; Pulse 117; Resp 18; Pulse Ox 97% on R/A; Weight 75.75 kg; Height 5 ft. 8 em in. (172.72 cm); Pain 8/10; 17:00 Temp 98.2; em 17:15 BP 133 / 85; Pulse 106; Resp 18; Pulse Ox 99% ; sv 18:18 BP 117 / 87; Pulse 102; Resp 16; Pulse Ox 100% ; sv 16:30 Body Mass Index 25.39 (75.75 kg, 172.72 cm) em MDM: 16:39 Patient medically screened. lawrence 17:44 Differential diagnosis: Ingestion/exposure to methamphetamines over medication. lawrence Differential Diagnosis altered mental status. Data reviewed: vital signs, nurses notes, lab test result(s), EKG. Data interpreted: secured entrance monitor: rate is 106 beats/min, rhythm is regular. Test interpretation: by ED physician or midlevel provider: ECG. Counseling: I had a detailed discussion with the patient and/or guardian regarding: the historical points, exam findings, and any diagnostic results supporting the discharge/admit diagnosis, lab results, radiology results, the need for outpatient follow up, for definitive care, a family practitioner, a psychiatrist. 11/27 16:39 Order name: Acetaminophen [facility] 11/27 16:39 Order name: Basic Metabolic Panel [facility] 11/27 16:39 Order name: CBC with Diff lawrence 11/27 16:39 Order name: ETOH Level; Complete Time: 18:22 [facility] 11/27 16:39 Order name: Hepatic Function; Complete Time: 18:22 [facility] 11/27 16:39 Order name: PT-INR; Complete Time: 18:22 [facility] 11/27 16:39 Order name: Ptt, Activated; Complete Time: 18:22 [facility] 11/27 16:39 Order name: Salicylate; Complete Time: 18:22 [facility] 11/27 16:39 Order name: EKG; Complete Time: 16:40 [facility] 11/27 16:39 Order name: Acetaminophen Level; Complete Time: 18:22 [facility] 11/27 16:39 Order name: Basic Metabolic Panel; Complete Time: 18:22 [facility] 11/27 16:39 Order name: CBC with Automated Diff; Complete Time: 17:35 [facility] 11/27 16:39 Order name: EKG - Nurse/Tech; Complete Time: 16:45 [facility] 11/27 16:39 Order name: IV Saline Lock; Complete Time: 16:45 [facility] 11/27 16:39 Order name: Labs collected and sent; Complete Time: 16:45 [facility] EC:49 Rate is 116 beats/min. Rhythm is regular. QRS Carmine is Normal. WA interval is normal. [facility] QRS interval is normal. QT interval is normal. No Q waves. T waves are Normal. No ST changes noted. Clinical impression: NSR w/ Non-specific ST/T Changes, Sinus tachycardia, and No evidence of ischemia. Interpreted by me. Reviewed by me. Administered Medications: 17:02 Drug: NS 0.9% 1000 ml Route: IV; Rate: 1 bolus; Site: right forearm; em 18:30 Follow up: IV Status: Completed infusion; IV Intake: 1000ml em Disposition: 11/27/20 18:23 Discharged to Home. Impression: Bipolar disorder, Adverse effect of amphetamines, Abuse of non-psychoactive substances. - Condition is Stable. - Discharge Instructions: Stimulant Use Disorder-Amphetamines, Bipolar Disorder, Substance Use Disorder, Stimulant Use Disorder-Methamphetamines. - Medication Reconciliation Form, Thank You Letter, Antibiotic Education, Prescription Opioid Use form. - Follow up: Private Physician; When: 2 - 3 days; Reason: Recheck today's complaints, Re-evaluation by your physician. Follow up: Kenrick Loomis; When: 2 - 3 days; Reason: Recheck today's complaints, Re-evaluation by your physician. - Problem is new. - Symptoms have improved. Signatures: Dispatcher [employer] Lg Roach MD MD cha Munoz, Edgar, RN RN em Corrections: (The following items were deleted from the chart) 16:46 16:39 Suicide Screening ([place]) ordered. lawrence em 18:46 18:23 11/27/2020 18:23 Discharged to Home. Impression: Bipolar disorder; Adverse effect em of amphetamines; Abuse of non-psychoactive substances. Condition is Stable. Discharge Instructions: Bipolar Disorder, Substance Use Disorder, Stimulant Use Disorder-Amphetamines, Stimulant Use Disorder-Methamphetamines. Forms are Medication Reconciliation Form, Thank You Letter, Antibiotic Education, Prescription Opioid Use. Follow up: Private Physician; When: 2 - 3 days; Reason: Recheck today's complaints, Re-evaluation by your physician. Follow up: Kenrick Loomis; When: 2 - 3 days; Reason: Recheck today's complaints, Re-evaluation by your physician. Problem is new. Symptoms have improved. lawrence
--- NOTE | 2020-11-27 18:23 | ER ---
Nurse's Notes [facility] Name: Eliot Lara Age: 40 yrs Sex: Male : 1980 Arrival Date: 11/27/2020 Time: 16:29 Bed 5 Private MD: Diagnosis: Bipolar disorder;Adverse effect of amphetamines;Abuse of non-psychoactive substances Presentation: 11/27 16:30 Chief complaint: EMS states: called out for visual and auditory hallucinations after em using meth., pt was clean for 15 months and used 1/2 gram at 0400 , ever since has been having the symptoms. Coronavirus screen: Client denies travel out of the [place] in the last 14 days. Ebola Screen: Patient negative for fever greater than or equal to 101.5 degrees Fahrenheit, and additional compatible Ebola Virus Disease symptoms Patient denies exposure to infectious person. Patient denies travel to an Ebola-affected area in the 21 days before illness onset. No symptoms or risks identified at this time. Initial Sepsis Screen: Does the patient meet any 2 criteria? HR > 90 bpm. No. Patient's initial sepsis screen is negative. Does the patient have a suspected source of infection? No. Patient's initial sepsis screen is negative. Risk Assessment: Do you want to hurt yourself or someone else? Patient reports no desire to harm self or others. Onset of symptoms was November 27, 2020. 16:30 Method Of Arrival: EMS: [facility] em 16:30 Acuity: OSWALDO 2 em Historical: - Allergies: 16:33 adhesive tape; em 16:33 Augmentin; em 16:33 Demerol; em 16:33 Latex, Natural Rubber; em - PMHx: 16:33 ADD/ADHD; Bipolar disorder; epilepsy; neuropathy; em - PSHx: 16:33 Ankle sx; Hernia repair; em - Immunization history:: Adult Immunizations up to date. - Social history:: Smoking status: Patient reports the use of cigarette tobacco products, smokes one pack cigarettes per day. Screenin:33 Abuse screen: Denies threats or abuse. Nutritional screening: No deficits noted. em Tuberculosis screening: No symptoms or risk factors identified. Fall Risk None identified. Assessment: 16:33 General: Appears in no apparent distress. comfortable, Behavior is calm, cooperative, em appropriate for age, Reports shaking, auditory and visual hallucinations, denies chest pain. Pain: Complains of pain in neck Pain currently is 8 out of 10 on a pain scale. Neuro: Level of Consciousness is awake, alert, obeys commands, Oriented to person, place, time, situation. Cardiovascular: Capillary refill < 3 seconds Patient's skin is warm and dry. Respiratory: Airway is patent Respiratory effort is even, unlabored, Respiratory pattern is regular, symmetrical. GI: Patient currently denies nausea, vomiting. Derm: Skin is intact, is healthy with good turgor, Skin is pink, warm \T\ dry. Musculoskeletal: Capillary refill < 3 seconds, Range of motion: intact in all extremities. 17:15 Reassessment: Patient appears in no apparent distress at this time. Patient and/or em family updated on plan of care and expected duration. Pain level reassessed. 18:42 Reassessment: Patient appears in no apparent distress at this time. Patient and/or em family updated on plan of care and expected duration. Pain level reassessed. Patient is alert, oriented x 3, equal unlabored respirations, skin warm/dry/pink. Vital Signs: 16:30 BP 144 / 94; Pulse 117; Resp 18; Pulse Ox 97% on R/A; Weight 75.75 kg; Height 5 ft. 8 em in. (172.72 cm); Pain 8/10; 17:00 Temp 98.2; em 17:15 BP 133 / 85; Pulse 106; Resp 18; Pulse Ox 99% ; sv 18:18 BP 117 / 87; Pulse 102; Resp 16; Pulse Ox 100% ; sv 16:30 Body Mass Index 25.39 (75.75 kg, 172.72 cm) em ED Course: 16:29 Patient arrived in ED. em 16:32 Triage completed. em 16:33 Arm band placed on. em 16:33 Patient has correct armband on for positive identification. Bed in low position. Call em light in reach. cardiac monitor on. Pulse ox on. NIBP on. 16:36 Lg Bishop MD is Attending Physician. [facility] 16:44 Ryan Rojas, CHERRIE is Primary Nurse. em 17:00 Initial lab(s) drawn, by tn, sent to lab. Inserted saline lock: 20 gauge in right em forearm, using aseptic technique. Blood collected. 17:45 Acetaminophen Sent. sv 17:45 CBC with Diff Sent. sv 17:46 Basic Metabolic Panel Sent. sv 18:23 Kenrick Loomis MD is Referral Physician. [facility] 18:42 No provider procedures requiring assistance completed. IV discontinued, intact, em bleeding controlled, No redness/swelling at site. Pressure dressing applied. Administered Medications: 17:02 Drug: NS 0.9% 1000 ml Route: IV; Rate: 1 bolus; Site: right forearm; em 18:30 Follow up: IV Status: Completed infusion; IV Intake: 1000ml em Intake: 18:30 IV: 1000ml; Total: 1000ml. em Outcome: 18:23 Discharge ordered by . [facility] 18:42 Discharged to home ambulatory. em 18:42 Condition: stable 18:42 Discharge instructions given to patient, Instructed on discharge instructions, follow up and referral plans. Demonstrated understanding of instructions, follow-up care. 18:46 Patient left the ED. em Signatures: Flavia Gallego RN RN Lg Corley MD MD cha Munoz, Edgar RN RN em
[2020-11-27 18:53] VITALS: TEMP 98.2
[2020-11-27 18:56] VITALS: BP 117/87; O2SAT 100
== END 2020-11-27 18:46 | disposition home or self-care (01) ==
LOC: ER 16:28
DX: F15.951 Other stimulant use, unspecified with stimulant-induced psychotic disorder with hallucinations (principal); F31.9 Bipolar disorder, unspecified; F55.8 Abuse of other non-psychoactive substances; F90.9 Attention-deficit hyperactivity disorder, unspecified type; G40.909 Epilepsy, unspecified, not intractable, without status epilepticus; F17.210 Nicotine dependence, cigarettes, uncomplicated
CPT/HCPCS: 36415; 80048; 80076; 80320; 80329; 85025; 85610; 85730; 93005; 96360; 99284; J7030

== ENCOUNTER 2020-12-13 11:47 | Emergency (ER) | payer SELFPAY ==
--- OUTSIDE RECORDS SUMMARY | 2020-12-13 11:49 | XMS REPORT | Continuity of Care Document ---
:1980 Author Organization [facility] t Address [address] [place] [address] [address] [place] [address] Care Team Providers Name Role Phone UNKNOWN [...] ID 2017-04-12 2017-04-12 Emergency E [facility] MED [id number] Medical 08:44:00 08:44:00 [facility] Results Test Description Test Time Test Comments Results Result [facility] e Comments SPINE LUMBAR SACR 2017-05-08 [facility] OF 09:31:[address] [id number] IMAGING REPORTPatient Name: Zehra KELLEY of Service: [id number]: 36 Sex: M Order #: [id number] Room: ERSDOB: 1980 X-Ray Number: [id number] Record Number: [id number] Hospital Number: [id number] Physician: Basil GRACE Physician: GEORGI SOLORZANO SPINE FIVE VIEWS:CLINICAL HISTORY: [...]
[2020-12-13 12:59] LABS: Urine Blood Negative (Negative); Urine Glucose Negative (Negative); Urine Protein Negative (Negative); Urine Specific Gravity >=1.030 (1.005-1.030)
[2020-12-13 13:36] LABS: Basophils % 0.3 % (0-1.3); Hematocrit 42.4 % (39.6-49.0); Lymphocytes % 31.3 % (15.3-44.8); MPV 10.6 fL (7.6-11.3); RBC Red Blood Cell Count 4.58 M/uL (4.33-5.43)
[2020-12-13] MEDS ORDERED: MORPHINE 4 MG/ML SYR ONE (13:46)
[2020-12-13] MEDS ORDERED: ONDANSETRON 4 MG/2 ML VIAL ONE (13:46)
[2020-12-13 13:48] LABS: ALT/SGPT 36 U/L (12-78); AST/SGOT 18 U/L (15-37); Albumin 3.9 g/dL (3.4-5.0); Alkaline Phosphatase 75 U/L (45-117); BUN Blood Urea Nitrogen 13 mg/dL (7-18); Bicarbonate 29 mmol/L (21-32); Bilirubin Direct < 0.1 mg/dL (0-0.2); Bilirubin Total 0.5 mg/dL (0.2-1.0); Glucose Level 85 mg/dL (74-106); Lipase 115 U/L (73-393); Protein, Total 7.3 g/dL (6.4-8.2); Sodium Level 140 mmol/L (136-145)
--- NOTE | 2020-12-13 14:24 | RAD REPORT ---
EXAM DESCRIPTION: CTAbdomen Pelvis W Contrast - 12/13/2020 2:14 pm CLINICAL HISTORY: Abdominal pain. ABD PAIN COMPARISON: Abdomen Pelvis W Contrast dated 05/22/2017; CT ABD PELVIS W CONTRAST dated 10/14/2007 TECHNIQUE: Biphasic CT imaging of the abdomen and pelvis was performed with 100 ml non-ionic IV cont rast. All CT scans are performed using dose optimization technique as appropriate and may include automated exposure control or mA/KV adjustment according to patient size. FINDINGS: The lung bases are clear. The liver, spleen, pancreas, adrenal glands and kidneys are within normal limits. No bowel obstruction, free air, free fluid or abscess. Small fat containing umbilical hernia. The adal endix is normal. Moderate stool is present throughout the colon. No evidence of significant lymphaden opathy. Mild to moderate lumbosacral degenerative changes. Left inguinal surgical clips. IMPRESSION: No acute intra-abdominal or pelvic finding. Small fat containing umbilical hernia. Moderate fecal retention.
[2020-12-13 14:36] LABS: Platelet Estimate ADEQ
[2020-12-13 14:37] LABS: Anisocytosis 1+; Blood Morphology Comment NOTED (NOT SEEN); Poikilocytosis 1+
--- NOTE | 2020-12-13 15:04 | EDPHYS ---
Physician Documentation [facility] Name: Eliot Lara Age: 40 yrs Sex: Male : 1980 Arrival Date: 12/13/2020 Time: 11:51 Bed 7 Private MD: GIANLUCA Physician Lg Bishop HPI: 12/13 13:26 This 40 yrs old Male presents to ER via Ambulatory with complaints of pm1 Abdominal Pain. 13:26 The patient presents with abdominal pain in the lower abdomen. Onset: The pm1 symptoms/episode began/occurred today. The symptoms do not radiate. Associated signs and symptoms: Pertinent positives: constipation, Pertinent negatives: nausea, vomiting, and diarrhea, dysuria, fever. The symptoms are described as burning. Modifying factors: The symptoms are alleviated by nothing, the symptoms are aggravated by movement. Severity of pain: in the emergency department the pain is actually worse. The patient has not experienced similar symptoms in the past. The patient has not recently seen a physician. Patient was moving boxes and twisted at the hips and started having lower abdominal pain. Historical: - Allergies: 12:19 adhesive tape; ca1 12:19 Augmentin; ca1 12:19 Demerol; ca1 12:19 Latex, Natural Rubber; ca1 - Home Meds: 12:19 Dilantin Oral [Active]; Depakote Oral [Active]; ca1 - PMHx: 12:19 ADD/ADHD; Bipolar disorder; epilepsy; neuropathy; ca1 - PSHx: 12:19 Ankle sx; Hernia repair; ca1 - Immunization history:: Client reports having NOT received the Covid vaccine. Last tetanus immunization: up to date Flu vaccine is not up to date. - Social history:: Smoking status: Patient/guardian denies using tobacco, but has a distant history of tobacco abuse. ROS: 13:26 Constitutional: Negative for fever, chills, and weight loss, Eyes: Negative for injury, pm1 pain, redness, and discharge, Cardiovascular: Negative for chest pain, palpitations, and edema, Respiratory: Negative for shortness of breath, cough, wheezing, and pleuritic chest pain. 13:26 Back: Negative for injury and pain. 13:26 : Negative for injury, bleeding, discharge, and swelling, MS/Extremity: Negative for injury and deformity, Skin: Negative for injury, rash, and discoloration, Neuro: Negative for headache, weakness, numbness, tingling, and seizure. 13:26 Abdomen/GI: Positive for abdominal pain, constipation, of the right lower quadrant and left lower quadrant, Negative for nausea, vomiting, and diarrhea. Exam: 13:26 Constitutional: This is a well developed, well nourished patient who is awake, alert, pm1 and in no acute distress. Head/Face: Normocephalic, atraumatic. Chest/axilla: Normal chest wall appearance and motion. Nontender with no deformity. No lesions are appreciated. Cardiovascular: Regular rate and rhythm with a normal S1 and S2. No gallops, murmurs, or rubs. Normal PMI, no JVD. No pulse deficits. Respiratory: Lungs have equal breath sounds bilaterally, clear to auscultation and percussion. No rales, rhonchi or wheezes noted. No increased work of breathing, no retractions or nasal flaring. 13:26 Back: No spinal tenderness. No costovertebral tenderness. Full range of motion. Skin: Warm, dry with normal turgor. Normal color with no rashes, no lesions, and no evidence of cellulitis. MS/ Extremity: Pulses equal, no cyanosis. Neurovascular intact. Full, normal range of motion. 13:26 Abdomen/GI: Inspection: abdomen appears normal, Palpation: soft, in all quadrants, mild abdominal tenderness, in the right lower quadrant and left lower quadrant. 13:26 Neuro: Exam negative for acute changes, Orientation: is normal, Mentation: is normal, Motor: is normal, moves all fours, Sensation: is normal, no obvious gross deficits, Gait: is steady, at a normal pace, without difficulty. Vital Signs: 12:14 BP 148 / 88; Pulse 81; Resp 16 S; Temp 97.4(TE); Pulse Ox 99% on R/A; Weight 75.75 kg ca1 (R); Height 5 ft. 8 in. (172.72 cm) (R); Pain 9/10; 12:14 Body Mass Index 25.39 (75.75 kg, 172.72 cm) ca1 MDM: 12:50 Patient medically screened. [facility] 15:02 Data reviewed: vital signs. Data interpreted: Pulse oximetry: on room air is 99 %. pm1 Interpretation: normal. Counseling: I had a detailed discussion with the patient and/or guardian regarding: the historical points, exam findings, and any diagnostic results supporting the discharge/admit diagnosis, lab results, radiology results, the need for outpatient follow up, to return to the emergency department if symptoms worsen or persist or if there are any questions or concerns that arise at home. 12/13 12:59 Order name: Urine Dipstick-Ancillary; Complete Time: 13:55 EDMS 12/13 13:03 Order name: Basic Metabolic Panel; Complete Time: 13:55 pm1 12/13 13:03 Order name: CBC with Diff; Complete Time: 14:59 pm1 12/13 13:03 Order name: Hepatic Function; Complete Time: 13:55 pm1 12/13 13:03 Order name: Lipase; Complete Time: 13:55 pm1 12/13 14:36 Order name: Manual Differential; Complete Time: 14:59 EDMS 12/13 13:03 Order name: IV Saline Lock pm1 12/13 13:03 Order name: Labs collected and sent pm1 12/13 13:55 Order name: CT Abd/Pelvis - IV Contrast Only; Complete Time: 14:26 pm1 Administered Medications: 13:42 Drug: Zofran (Ondansetron) 4 mg Route: IVP; Site: right antecubital; kg 14:18 Follow up: Response: No adverse reaction; Marked relief of symptoms kg 13:43 Drug: morphine 4 mg Route: IVP; Site: right antecubital; kg 14:18 Follow up: Response: No adverse reaction; Marked relief of symptoms kg Disposition: 12/14 10:01 Co-signature as Attending Physician, Lg Bishop MD I agree with the assessment and lawrence plan of care. Disposition: 12/13/20 15:03 Discharged to Home. Impression: Unspecified abdominal pain, Strain of muscle, fascia and tendon of abdomen. - Condition is Stable. - Discharge Instructions: Abdominal Pain, Adult, Muscle Strain. - Prescriptions for Tylenol- Codeine #3 300-30 mg Oral Tablet - take 2 tablets by ORAL route every 4-6 hours As needed; 20 tablet. Cyclobenzaprine 10 mg Oral Tablet - take 1 tablet by ORAL route every 8 hours As needed; 30 tablet. - Medication Reconciliation Form, Thank You Letter, Antibiotic Education, Prescription Opioid Use form. - Follow up: Emergency Department; When: As needed; Reason: Worsening of condition. Follow up: Private Physician; When: 2 - 3 days; Reason: Recheck today's complaints, Continuance of care, Re-evaluation by your physician. - Problem is new. - Symptoms have improved. Signatures: Dispatcher [employer] EDMS Lg Bishop MD MD cha Marinas, Patrick, WORLD TRAVEL COUNSELOR WORLD TRAVEL COUNSELOR pm1 Barbara Juan RN RN ca1 Chirag Delarosa RN RN ll1 Chelsea Elder kg Corrections: (The following items were deleted from the chart) 12/13 16:32 15:03 12/13/2020 15:03 Discharged to Home. Impression: Unspecified abdominal pain; ll1 Strain of muscle, fascia and tendon of abdomen. Condition is Stable. Forms are Medication Reconciliation Form, Thank You Letter, Antibiotic Education, Prescription Opioid Use. Follow up: Emergency Department; When: As needed; Reason: Worsening of condition. Follow up: Private Physician; When: 2 - 3 days; Reason: Recheck today's complaints, Continuance of care, Re-evaluation by your physician. Problem is new. Symptoms have improved. pm1
--- NOTE | 2020-12-13 15:04 | ER ---
Nurse's Notes [facility] Name: Eliot Lara Age: 40 yrs Sex: Male : 1980 Arrival Date: 12/13/2020 Time: 11:51 Bed 7 Private MD: Diagnosis: Unspecified abdominal pain;Strain of muscle, fascia and tendon of abdomen Presentation: 12/13 12:14 Chief complaint: Patient states: HX of Inguinal Hernia and Hernia repair. This morning, ca1 I was moving boxes and I moved too fast. I felt a rip on my lower abdominal area. Now am hurting from my RLQ to the LLQ. I also feel bloated at this time. I feel like I had to go to the bathroom and I can't go and when I pee it's like a little trickle and it hurts. Coronavirus screen: Client denies travel out of the [place] in the last 14 days. At this time, the client does not indicate any symptoms associated with coronavirus-19. Ebola Screen: Patient negative for fever greater than or equal to 101.5 degrees Fahrenheit, and additional compatible Ebola Virus Disease symptoms Patient denies exposure to infectious person. Patient denies travel to an Ebola-affected area in the 21 days before illness onset. No symptoms or risks identified at this time. Initial Sepsis Screen: Does the patient meet any 2 criteria? No. Patient's initial sepsis screen is negative. Does the patient have a suspected source of infection? No. Patient's initial sepsis screen is negative. Risk Assessment: Do you want to hurt yourself or someone else? Patient reports no desire to harm self or others. Onset of symptoms was December 13, 2020. 12:14 Method Of Arrival: Ambulatory ca1 12:14 Acuity: OSWALDO 3 ca1 Triage Assessment: 15:30 General: Appears in no apparent distress. Behavior is calm, cooperative, appropriate kg for age, quiet. 15:30 EENT: No deficits noted. Neuro: No deficits noted. Cardiovascular: No deficits noted. kg Respiratory: No deficits noted. GI: Abdomen is flat, Bowel sounds present X 4 quads. Abd is soft Abdomen is tender to palpation Reports lower abdominal pain. : No deficits noted. Derm: No deficits noted. Musculoskeletal: No deficits noted. 16:00 Pain: Complains of pain in right lower quadrant and left lower quadrant Pain does not kg radiate. Pain currently is 9 out of 10 on a pain scale. at worst was 9 out of 10 on a pain scale. level that patient reports is acceptable is 5 out of 10 on a pain scale. Quality of pain is described as burning, crampy, sharp, Pain began 3 hours ago. 17:17 Pain:. kg Historical: - Allergies: 12:19 adhesive tape; ca1 12:19 Augmentin; ca1 12:19 Demerol; ca1 12:19 Latex, Natural Rubber; ca1 - Home Meds: 12:19 Dilantin Oral [Active]; Depakote Oral [Active]; ca1 - PMHx: 12:19 ADD/ADHD; Bipolar disorder; epilepsy; neuropathy; ca1 - PSHx: 12:19 Ankle sx; Hernia repair; ca1 - Immunization history:: Client reports having NOT received the Covid vaccine. Last tetanus immunization: up to date Flu vaccine is not up to date. - Social history:: Smoking status: Patient/guardian denies using tobacco, but has a distant history of tobacco abuse. Screenin:13 Abuse screen: Denies threats or abuse. Denies injuries from another. Nutritional kg screening: No deficits noted. Tuberculosis screening: No symptoms or risk factors identified. Fall Risk None identified. No fall in past 12 months (0 pts). No secondary diagnosis (0 pts). IV access (20 points). Ambulatory Aid- None/Bed Rest/Nurse Assist (0 pts). Gait- Normal/Bed Rest/Wheelchair (0 pts) Mental Status- Oriented to own ability (0 pts). Total Hahn Fall Scale indicates No Risk (0-24 pts). Assessment: 15:30 Respiratory: No deficits noted. GI: kg 17:14 General: Appears in no apparent distress. Behavior is calm, cooperative, appropriate kg for age, quiet. Pain: Complains of pain in right lower quadrant and left lower quadrant Pain currently is 9 out of 10 on a pain scale. at worst was 9 out of 10 on a pain scale. level that patient reports is acceptable is 5 out of 10 on a pain scale. Quality of pain is described as burning, crampy, sharp, Pain began 4 hours ago. Neuro: No deficits noted. Cardiovascular: No deficits noted. Respiratory: No deficits noted. GI: Abdomen is flat, Bowel sounds present X 4 quads. Abd is soft X 4 quads Abdomen is tender to palpation in right lower quadrant and left lower quadrant Reports lower abdominal pain. : No deficits noted. EENT: No deficits noted. Derm: No deficits noted. Musculoskeletal: No deficits noted. Vital Signs: 12:14 BP 148 / 88; Pulse 81; Resp 16 S; Temp 97.4(TE); Pulse Ox 99% on R/A; Weight 75.75 kg ca1 (R); Height 5 ft. 8 in. (172.72 cm) (R); Pain 9/10; 12:14 Body Mass Index 25.39 (75.75 kg, 172.72 cm) ca1 ED Course: 11:51 Patient arrived in ED. as 12:18 Triage completed. ca1 12:19 Arm band placed on right wrist. ca1 12:28 Patient placed in an exam room, on a stretcher. ll1 12:35 Chelsea Elder is Primary Nurse. kg 12:48 Ronnie Wall NP is PHCP. pm1 12:48 Lg Bishop MD is Attending Physician. pm1 14:14 CT Abd/Pelvis - IV Contrast Only In Process Unspecified. EDMS 15:30 Inserted saline lock: 20 gauge in right antecubital area, using aseptic technique. kg 17:00 IV discontinued, intact, bleeding controlled, No redness/swelling at site. Pressure kg dressing applied. 17:32 Patient has correct armband on for positive identification. kg 17:33 No provider procedures requiring assistance completed. kg Administered Medications: 13:42 Drug: Zofran (Ondansetron) 4 mg Route: IVP; Site: right antecubital; kg 14:18 Follow up: Response: No adverse reaction; Marked relief of symptoms kg 13:43 Drug: morphine 4 mg Route: IVP; Site: right antecubital; kg 14:18 Follow up: Response: No adverse reaction; Marked relief of symptoms kg Outcome: 15:03 Discharge ordered by . pm1 16:32 Patient left the ED. ll1 17:00 Discharged to home ambulatory. kg 17:00 Condition: improved 17:00 Discharge instructions given to patient, Instructed on discharge instructions, follow up and referral plans. 17:00 Instructed on Demonstrated understanding of instructions, follow-up care, medications, kg Prescriptions given X 2. Signatures: Dispatcher [employer] EDMS Sasha Coyle Ronnie, PAYROLL MACHINE OPERATOR PAYROLL MACHINE OPERATOR pm1 Barbara Juan RN RN ca1 Chirag Delarosa RN RN ll1 Chelsea Elder kg Corrections: (The following items were deleted from the chart) 17:17 17:14 Pain: Complains of pain in right lower quadrant and left lower quadrant Pain kg currently is 9 out of 10 on a pain scale. at worst was 9 out of 10 on a pain scale. level that patient reports is acceptable is 5 out of 10 on a pain scale. Quality of pain is described as burning, crampy, sharp, Pain began 4 hours ago. kg 17:32 17:13 General: Appears in no apparent distress. Behavior is calm, cooperative, kg appropriate for age, quiet, kg
[2020-12-13 16:43] VITALS: BP 148/88; TEMP 97.4; O2SAT 99
== END 2020-12-13 16:32 | disposition home or self-care (01) ==
LOC: ER 11:47
DX: S39.011A Strain of muscle, fascia and tendon of abdomen, initial encounter (principal); X50.1XXA Overexertion from prolonged static or awkward postures, initial encounter; Y93.89 Activity, other specified; F31.9 Bipolar disorder, unspecified; G40.909 Epilepsy, unspecified, not intractable, without status epilepticus; Z88.1 Allergy status to other antibiotic agents; Z88.5 Allergy status to narcotic agent; Z91.040 Latex allergy status; Z91.048 Other nonmedicinal substance allergy status
CPT/HCPCS: 36415; 74177; 80048; 80076; 81003; 83690; 85025; 96374; 96375; 99284; J2405; Q9967